=== PATIENT | male | born 1985 | race Two or more races ===

== ENCOUNTER 2022-03-24 07:05 | Emergency (ER) | payer SELFPAY ==
[~2022-03-24] VITALS: Ht 182.9 cm; Wt 81.6 kg
--- NOTE | 2022-03-24 08:00 | NUR ---
dr rich seen pt for wound check
--- NOTE | 2022-03-24 08:06 | NUR ---
Patient discharged to home in stable condition. Written and verbal after care instructions given. Patient verbalizes understanding of instruction.
[2022-03-24 08:07] VITALS: BP 135/83
== END 2022-03-24 08:07 | disposition home or self-care (01) ==
LOC: ER 07:16
DX: Z48.02 Encounter for removal of sutures (principal)